=== PATIENT | female | born 1960 | race Two or more races ===

== ENCOUNTER 2018-08-12 09:07 | Outpatient (CLI) | payer OTHER | END 2018-08-12 09:16 | disposition home or self-care (01) | LOC: MAMO-SONO 09:07 | DX: N64.4 Mastodynia (principal); Z12.31 Encounter for screening mammogram for malignant neoplasm of breast; N60.11 Diffuse cystic mastopathy of right breast; N63.10 Unspecified lump in the right breast, unspecified quadrant; N63.20 Unspecified lump in the left breast, unspecified quadrant ==